=== PATIENT | female | born 1985 | race Caucasian/White ===

== ENCOUNTER 2018-07-29 19:23 | Emergency (ER) | payer OTHER ==
--- NOTE | 2018-07-29 19:49 | PDOC ---
Rapid Medical Evaluation Time Seen by Provider: 07/29/18 19:43 Medical Evaluation: 07/29/18 19:44 I have performed a brief in-person evaluation of this patient. The patient presents with a chief complaint of:L sided rib and chest pain x1 week with nausea, vomiting and diarrhea on amoxicillin, flagyl she is being treated for a "bacteria" Pertinent physical exam findings:NAD I have ordered the following:Nothing The patient will proceed to the ED for further evaluation. Discharge Disposition - Diagnosis Chest pain - Referrals - Patient Instructions - Post Discharge Activity
[2018-07-29 19:52] VITALS: BP 129/90; PULSE 73; TEMP 98; BMI 30.9
--- NOTE | 2018-07-29 22:00 | PDOC ---
Attending Attestation - HPI HPI: This patient is a 32 year old female, currently on Amoxicillin and flagyl for bacterial infection in stomach, who presents with 3 weeks of nausea,vomiting, and diarrhea, and chest pain for the past week. She states that Motrin helps relieve her symptoms. Her chief concern is the chest pain for a week Denies fevers. - Physicial Exam PE: Agree with resident's exam. 07/29/18 22:15 <Cornelia Fuentes - Last Filed: 07/29/18 22:10> - Resident Resident Name: Quan Willis - ED Attending Attestation I have performed the following: I have examined & evaluated the patient, The case was reviewed & discussed with the resident, I agree w/resident's findings & plan - Medical Decision Making 07/30/18 00:36 32-year-old female with abdominal cramping 3 weeks currently on antibiotics for presumed H pylori Ultrasound right upper quadrant was within normal limits On reevaluation patient has some residual point tenderness over the right upper quadrant epigastrium but otherwise is feeling much better Patient will be discharged home to continue outpatient follow-up with her regular physicians I medical we will <Sneha Nice - Last Filed: 07/30/18 00:39> Attestations - Attestations 07/29/18 22:16 Documentation prepared by Cornelia uFentes, acting as medical examiner for Sneha Nice DO. <Cornelia Fuentes - Last Filed: 07/29/18 22:10>
[2018-07-29] MEDS ORDERED: ONDANSETRON 4 MG/2 ML VIAL IVPUSH ONE (22:06)
[2018-07-29] MEDS ORDERED: FAMOTIDINE 20 MG/50 ML IVPB 20 MG/50 ML MG IVPB ONE ×2 (22:06→22:23)
[2018-07-29] MEDS ORDERED: SODIUM CHLORIDE 0.9% 1000 ML INFUS.BAG IV ONE (22:06)
[2018-07-29] MEDS ORDERED: ONDANSETRON 4 MG/2 ML VIAL ONE (22:22)
[2018-07-29 22:26] LABS: BASO % 0.4 % (0-2.0); EOS % 4.2 % (0-4.5); HEMATOCRIT 38.2 % (32.4-45.2); HEMOGLOBIN 13.2 GM/dL (10.7-15.3); MCH 29.2 pg (25.7-33.7); MCHC 34.5 g/dl (32.0-36.0); MEAN CELL VOLUME 84.7 fl (80-96); MONO % 8.5 % (3.8-10.2); NEUT % 50.9 % (42.8-82.8); PLATELET COUNT 313 K/MM3 (134-434); RBC 4.52 M/mm3 (3.60-5.2); WHITE BLOOD COUNT 7.4 K/mm3 (4.0-10.0)
--- NOTE | 2018-07-29 22:34 | PDOC ---
History of Present Illness - General Chief Complaint: Pain Stated Complaint: CHEST PAIN Time Seen by Provider: 07/29/18 19:43 History Source: Patient Exam Limitations: No Limitations - History of Present Illness Initial Comments: 07/29/18 22:29 The patient is a 32F with no PMH who presents to the ER with complaints of chest pain. The patient states that she's had 3 weeks of nausea, vomiting, and abdominal pain. The patient states that over the past week, she's had diffuse chest pain which is reproducible on palpation. She denies SOB, fever, chills, long car rides/plane trips, hx of cancer, hx of DVT/PE. Past History - Past Medical History Allergies/Adverse Reactions: Allergies Allergy/AdvReac Type Severity Reaction Status Date / Time No Known Allergies Allergy Verified 07/29/18 19:49 Home Medications: Ambulatory Orders NK [No Known Home Medication] 07/29/18 COPD: No GI Disorders: Yes (Gastritis) - Suicide/Smoking/Psychosocial Hx Smoking History: Never smoked Have you smoked in the past 12 months: No Information on smoking cessation initiated: No Hx Alcohol Use: No Drug/Substance Use Hx: No Review of Systems - Review of Systems Able to Perform ROS?: Yes Comments:: 07/30/18 00:30 GENERAL/CONSTITUTIONAL: No fever or chills. No weakness. HEAD, EYES, EARS, NOSE AND THROAT: No change in vision. No ear pain or discharge. No sore throat. CARDIOVASCULAR: Positive for CP. No palpitations or lightheadedness. RESPIRATORY: No cough, wheezing, shortness of breath, or hemoptysis. GASTROINTESTINAL: Positive for nausea, vomiting, and diarrhea. No abdominal pain. GENITOURINARY: No dysuria, frequency, hematuria, or change in urination. MUSCULOSKELETAL: No joint or muscle swelling or pain. No neck or back pain. SKIN: No rash or lesions. NEUROLOGIC: No headache, numbness, tingling, focal weakness, loss of consciousness, or change in strength/sensation. Is the patient limited Irish proficient: No *Physical Exam - Vital Signs Last Vital Signs Temp Pulse Resp BP Pulse Ox 98.0 F 73 18 129/90 99 07/29/18 19:49 07/29/18 19:49 07/29/18 19:49 07/29/18 19:49 07/29/18 19:49 - Physical Exam Comments: 07/30/18 00:31 GENERAL: Well developed, well nourished. Awake and alert. No acute distress. HEENT: Normocephalic, atraumatic. Hearing grossly normal. Moist mucous membranes. PERRLA, EOMI. No conjunctival pallor. NECK: Supple. Full ROM. No JVD. CARDIOVASCULAR: Regular rate and rhythm. No murmurs, rubs, or gallops. PULMONARY: No evidence of respiratory distress. Lungs clear to auscultation bilaterally. No wheezing, rales or rhonchi. ABDOMINAL: Soft. Mild TTP in RUQ. Negative Munguia's. Non-distended. No rebound or guarding. GENITOURINARY: No CVA tenderness bilaterally. MUSCULOSKELETAL: Normal range of motion at all joints. No bony deformities or tenderness. EXTREMITIES: No cyanosis. No clubbing. No edema. No calf tenderness or swelling. SKIN: Warm and dry. Normal capillary refill. No rashes. No jaundice. NEUROLOGICAL: Alert, awake, appropriate. Cranial nerves 2-12 grossly intact. Normal speech. Gait is normal without ataxia. PSYCHIATRIC: Cooperative. Good eye contact. Appropriate mood and affect. Moderate Sedation - Procedure Monitoring Vital Signs: Procedure Monitoring Vital Signs Temperature 98.0 F 07/29/18 19:49 Pulse Rate 73 07/29/18 19:49 Respiratory Rate 18 07/29/18 19:49 Blood Pressure 129/90 07/29/18 19:49 O2 Sat by Pulse Oximetry (%) 99 07/29/18 19:49 ED Treatment Course - LABORATORY CBC & Chemistry Diagram: 07/29/18 22:15 07/29/18 22:15 - RADIOLOGY Radiology Studies Ordered: Category Date Time Status CHEST PA & LAT [RAD] Stat Radiology 07/29/18 22:05 Ordered - Medications Given in the ED: ED Medications Discontinued Medications Generic Name Dose Route Start Last Admin Trade Name Freq PRN Reason Stop Dose Admin Ondansetron HCl 4 mg 07/29/18 22:06 07/29/18 22:27 Zofran Injection IVPUSH 07/29/18 22:07 4 mg ONCE ONE Administration Sodium Chloride 1,000 ml 07/29/18 22:06 07/29/18 22:27 Normal Saline - IV 07/29/18 22:07 1,000 ml ONCE ONE Administration Medical Decision Making - Medical Decision Making 07/30/18 00:24 The patient is a 32F with no PMH who presents to the ER with complaints of nausea, vomiting, and diffuse CP worsening for 1 week. Initial concern for cholecystitis, PUD, gastritis. Giving fluids, pepcid, and zofran. CBC, CMP, lipase, trop, XR, and RUQ US negative. Upreg negative. Pt states she feels much better. Will d/c with PCP f/u. *DC/Admit/Observation/Transfer Diagnosis at time of Disposition: Chest pain Qualifiers: Chest pain type: unspecified Qualified Code(s): R07.9 - Chest pain, unspecified - Discharge Dispostion Disposition: HOME Condition at time of disposition: Stable Decision to Admit order: No - Referrals - Patient Instructions Printed Discharge Instructions: DI for Atypical Chest Pain Additional Instructions: Please follow up with your primary care physician in 2-3 days. Please return to the ER if you have any signs or symptoms of chest pain, shortness of breath, uncontrollable fever, chills, nausea, vomiting, numbness, tingling, or weakness in any part of your body, changes in vision, or slurred speech. Please take your medications as prescribed. Please return to the ER if symptoms persist, worsen, or new symptoms arise. - Post Discharge Activity
[2018-07-29 22:58] LABS: ALBUMIN 3.7 g/dl (3.4-5.0); ALK PHOS 74 U/L (45-117); ANION GAP 5 MMOL/L (8-16); BILIRUBIN,TOTAL 0.3 mg/dL (0.2-1); BLOOD UREA NITROGEN 10 mg/dL (7-18); CALCIUM 8.8 mg/dL (8.5-10.1); CHLORIDE 108 mmol/L (98-107); CO2 27 mmol/L (21-32); CREATININE 0.6 mg/dL (0.55-1.3); GLUCOSE,RANDOM 72 mg/dL (74-106); POTASSIUM 3.7 mmol/L (3.5-5.1); SGOT/AST 12 U/L (15-37); SGPT/ALT 26 U/L (13-61); SODIUM 140 mmol/L (136-145); TOT PROT 7.5 g/dl (6.4-8.2)
[2018-07-29 23:41] LABS: LIPASE 162 U/L (73-393)
--- NOTE | 2018-07-30 15:41 | EKG ---
Test Reason : Blood Pressure : / mmHG Vent. Rate : 075 BPM Atrial Rate : 075 BPM P-R Int : 192 ms QRS Dur : 096 ms QT Int : 364 ms P-R-T Axes : 043 067 027 degrees QTc Int : 406 ms NORMAL SINUS RHYTHM INCOMPLETE RIGHT BUNDLE BRANCH BLOCK MINIMAL VOLTAGE CRITERIA FOR LVH, MAY BE NORMAL VARIANT BORDERLINE ECG NO PREVIOUS ECGS AVAILABLE Confirmed by YOCASTA GARCIA MD ([id number]) on 07/30/2018 3:41:17 PM Referred By: Confirmed By:YOCASTA GARCIA MD
== END 2018-07-30 00:36 | disposition home or self-care (01) ==
LOC: JER 19:23
PROC: 3E033GC Introduction of Other Therapeutic Substance into Peripheral Vein, Percutaneous Approach (ICD-10-PCS; principal; 2018-07-29)
PROC: 3E033GC Introduction of Other Therapeutic Substance into Peripheral Vein, Percutaneous Approach (ICD-10-PCS; 2018-07-29)
DX: R07.9 Chest pain, unspecified (principal)
CPT/HCPCS: 36415; 71046-TC-FY; 76705-TC; 80053; 83690; 84484; 84703; 85025; 93005; 93010; 99283-25; J7030